=== PATIENT | female | born 1985 | race Caucasian/White ===

== ENCOUNTER 2024-03-07 16:26 | Emergency (ER) | payer BC, SELFPAY ==
[2024-03-07 16:30] VITALS: BP 119/71
--- NOTE | 2024-03-07 22:02 | ED.GENMED ---
History of Present Illness
General
Chief Complaint: Bowel Problem
Source: patient and spouse
Exam Limitations: none
Time Seen by Provider: 03/07/24 19:11
Nursing documentation reviewed up to this point in time: agreed with
History of Present Illness
History of Present Illness:
38-year-old female currently 13 weeks presenting to the emergency department today with concerns of constipation. She claims that she has significant discomfort to the rectal area and claims that she is having trouble having bowel
movements since being but significantly worse today. Took Colace without relief. Vital signs normal upon arrival.
Review of Systems
Review of Systems
Allergies reviewed?: Yes
All Other Systems: ROS reviewed and negative except as documented in HPI and ROS
Phy Exam
Physical Exam
Physical Exam:
GENERAL: Alert , in no apparent distress
EYE: pupils equal and reactive
NECK: Supple, no significant adenopathy.
ENT: o/p clr, mmm.
CARDIAC: Regular rate and rhythm .
LUNGS: Clear breath sounds bilaterally, no acute respiratory distress, no wheezes/rales/rhonchi
ABDOMEN: Soft, without focal tenderness, no r/g, no cvat
Rectal examination; fecal impaction unable to be removed manually
NEUROLOGICAL: Alert and oriented, no focal neuro deficits
SKIN: Warm and dry, skin intact.
MUSCULOSKELETAL: No edema, well perfused.
PSYCH: Normal and appropriate interaction.
Course
Orders/Labs/Results
Orders:
Orders
03/07/24 20:23
Enema- Treatment ONCE
Type: Soap Suds
Vital Signs
Initial and Last Documented VS:
Initial Vital Signs
Temp Pulse Resp BP Pulse Ox
97.6 F 78 20 119/71 100
03/07/24 16:30 03/07/24 16:30 03/07/24 16:30 03/07/24 16:30 03/07/24 16:30
Last Documented Vital Signs
Temp Pulse Resp BP Pulse Ox
97.6 F 78 20 119/71 100
03/07/24 16:30 03/07/24 16:30 03/07/24 16:30 03/07/24 16:30 03/07/24 16:30
MDM/Problems Addressed
MDM/Problems Addressed:
38-year-old female presenting to the emergency department currently 13 weeks with concerns of constipation. Manual disimpaction attempted but unsuccessful. Patient was then given soapsuds enema. Patient then had a large bowel movement
felt much better and requested to go home. Patient well-appearing stable for discharge return precautions given. Advised for ongoing MiraLAX use.
*Critical Care Note
Total Time (30-74mins, 75-104mins- exclusive of procedures): Not Applicable
ED Attending Note
-
Portions of this chart may have been created with voice recognition software.� Occasional wrong word or��sound alike� substitutions may have occurred due to the inherent limitations of voice recognition software.
Discharge Plan
Departure
Referrals:
Rayne Britton PA-C [Family Provider] -
Interventions
Interventions:
*General Assessment Last Done: 03/07/24 16:30
*Neglect/Abuse Screening Last Done: 03/07/24 16:30
NP-Hwtlvs-Vnfxkdufjp Assessment Last Done: 03/07/24 20:45
Discharge Date and Time
Print Language: IRANIAN
== END 2024-03-07 22:06 | disposition home or self-care (01) ==
LOC: EMR 16:26
PROVIDERS: EMERGENCY PHYSICIAN Emergency Medicine; FAMILY PHYSICIAN Physician Assistant Medical
DX: O99.891 Other specified diseases and conditions complicating pregnancy (principal); K59.00 Constipation, unspecified; Z3A.13 13 weeks gestation of pregnancy
CPT/HCPCS: 99282

== ENCOUNTER 2024-09-20 20:44 | Inpatient (IN) | payer BC, SELFPAY ==
[2024-09-20 21:04] VITALS: BP 137/78; BMI 30.6
[2024-09-20 23:06] LABS: % Basophils 0.4 % (0-2); % Eosinophils 1.1 % (0-6); % Immature Granulocytes 0.7 % (0-0.5); % Lymphocytes 28.3 % (20.5-51.1); % Monocytes 8.2 % (1.7-9.3); % Neutrophils 61.3 % (42.2-75.2); Absolute Eosinophils 0.1 10^3/uL (0-0.7); Absolute Immature Granulocytes 0.1 10^3/uL (0-0.05); Absolute Lymphocytes 3.2 10^3/uL (1.2-3.4); Absolute Monocytes 0.9 10^3/uL (0.1-0.6); Absolute Neutrophils 6.9 10^3/uL (1.4-6.5); Hematocrit 39.9 % (37.0-47.0); Hemoglobin 13.2 g/dL (12.0-16.0); Mean Corp Hgb Conc. 33.1 g/dL (33.0-37.0); Mean Corpuscular Hgb 28.9 pg (27.0-31.0); Mean Corpuscular Volume 87.5 fL (81.0-99.0); Mean Platelet Volume 13.6 fL (7.4-10.4); Nucleated Red Blood Cells % 0 %; Platelet Count 149 10^3/uL (130-400); Red Blood Cell Count 4.56 10^6/uL (4.20-5.40); Red Cell Dist. Width 15.1 % (11.5-14.5); White Blood Cell Count 11.2 10^3/uL (4.8-10.8)
[2024-09-20] MEDS: CYTOTEC 25 MICROGRAM VAG (23:33)
[2024-09-21] MEDS: CYTOTEC 50 MICROGRAM PO (03:33)
[2024-09-21] MEDS: STADOL 1 MG IV ×2 (08:59→16:44)
[2024-09-21] MEDS: PITOCIN 30 UNITS/NSS 500 ML IV ×2 (12:11→21:08)
[2024-09-21] MEDS: SUBLIMAZE 100 MCG EPIDURAL (17:30)
[2024-09-21] MEDS: FENTANYL/BUPIVACAINE 100 EPIDURAL (17:51)
[2024-09-21] MEDS: CYTOTEC PO (21:22)
[2024-09-21] MEDS: METHERGINE INJECTION 0.2 MG IM (21:34)
[2024-09-22] MEDS: MOTRIN 600 MG PO ×4 (06:11→21:09)
[2024-09-22 06:23] LABS: Hematocrit 39.8 % (37.0-47.0); Hemoglobin 13.2 g/dL (12.0-16.0)
[2024-09-22] MEDS: PRENATAL PLUS 1 TABLET PO (09:26)
[2024-09-22] MEDS: SENOKOT-S 1 TABLET PO (09:26)
[2024-09-22] MEDS: TYLENOL 650 MG PO (21:09)
[2024-09-23] MEDS: MOTRIN 600 MG PO ×2 (07:52→13:50)
[2024-09-23] MEDS: SENOKOT-S 1 TABLET PO (07:52)
[2024-09-23] MEDS: TYLENOL 650 MG PO ×2 (07:52→13:05)
[2024-09-23] MEDS: PRENATAL PLUS 1 TABLET PO (07:53)
[2024-09-23 11:38] LABS: Syphilis/T. pallidum Ab Reflex Negative (Negative)
[2024-09-23] MEDS: M-M-R II 0.5 ML SC (13:06)
== END 2024-09-23 15:30 | disposition home or self-care (01) | DRG 805 ==
LOC: LDRP 20:44
PROVIDERS: Obstetrics & Gynecology; ADMITTING PHYSICIAN Student in an Organized Health Care Education/Training Program
PROC: 3E0P7VZ Introduction of Hormone into Female Reproductive, Via Natural or Artificial Opening (ICD-10-PCS; 2024-09-20)
PROC: 10907ZC Drainage of Amniotic Fluid, Therapeutic from Products of Conception, Via Natural or Artificial Opening (ICD-10-PCS; 2024-09-21)
PROC: 0HQ9XZZ Repair Perineum Skin, External Approach (ICD-10-PCS; 2024-09-21)
PROC: 0UQMXZZ Repair Vulva, External Approach (ICD-10-PCS; 2024-09-21)
PROC: 10E0XZZ Delivery of Products of Conception, External Approach (ICD-10-PCS; 2024-09-21)
PROC: 3E0234Z Introduction of Serum, Toxoid and Vaccine into Muscle, Percutaneous Approach (ICD-10-PCS; 2024-09-23)
DX: O48.0 Post-term pregnancy (principal); O67.0 Intrapartum hemorrhage with coagulation defect; Z37.0 Single live birth; D68.51 Activated protein C resistance; O70.0 First degree perineal laceration during delivery; O77.0 Labor and delivery complicated by meconium in amniotic fluid; Z3A.41 41 weeks gestation of pregnancy; Z23 Encounter for immunization; Z86.16 Personal history of COVID-19
CPT/HCPCS: 88307; 36415; 85014; 85018; 85025; 86780; 86850; 86900; 86901; 90707